=== PATIENT | female | born 1940 | race Caucasian/White ===

== ENCOUNTER → 2021-11-14 | Outpatient (CLI) | payer MEDICARE | LOC: M PLARAD 11:39 → EDSEX 12:30 | PROVIDERS: ATTEND Nurse Practitioner Family | DX: C79.51 Secondary malignant neoplasm of bone (principal); C78.00 Secondary malignant neoplasm of unspecified lung; I63.512 Cerebral infarction due to unspecified occlusion or stenosis of left middle cerebral artery; R94.02 Abnormal brain scan; N28.9 Disorder of kidney and ureter, unspecified; R93.5 Abnormal findings on diagnostic imaging of other abdominal regions, including retroperitoneum; K86.89 Other specified diseases of pancreas | CPT/HCPCS: 78815; A9552 ==